=== PATIENT | male | born 1935 | race Caucasian/White ===

== ENCOUNTER 2019-05-09 05:03 | Inpatient (IN) | payer MEDICARE, SELFPAY ==
[2019-05-09] VITALS (14 sets, daily range): BP systolic 122–160; BP diastolic 70–86; PULSE 74–103; RESP 16–18; TEMP 36.3–37.3; O2SAT 82–100; BMI 26.0; BMI 25.0; BMI 25.1
--- NOTE | 2019-05-09 05:10 | RAD_ITS ---
STUDY: X-RAY CHEST REASON FOR EXAM: Male, 84 years old. Fall. TECHNIQUE: AP portable chest. COMPARISON: None. FINDINGS: The lungs are clear and expanded. There is no demonstrated pleural abnormality. Normal size heart. Normal mediastinum and kei. Normal visualized pulmonary arteries. Atherosclerotic calcification of the aortic arch. Degenerative changes left shoulder as well as the thoracic spine. There is no demonstrated abnormality of the visualized soft tissue structures of the upper abdomen. RAD/Chest 1 View (Portable) IMPRESSION: No acute cardiopulmonary disease. Electronically Signed: Martin Vallecillo MD at 6:26 EDT , Service support ,
--- NOTE | 2019-05-09 05:10 | EKG12_ITS ---
Test Reason : FALL Blood Pressure : / mmHG Vent. Rate : 077 BPM Atrial Rate : 077 BPM P-R Int : 170 ms QRS Dur : 098 ms QT Int : 414 ms P-R-T Axes : 077 -40 081 degrees QTc Int : 468 ms Normal sinus rhythm Left axis deviation Abnormal ECG Confirmed by TANESHA LIZ ([id number]), acquisition editor CONSTANTIN OLIVAS ([id number] on 05/10/2019 9:49:02 AM Referred By: HEBERT Confirmed By:TANESHA LIZ
--- NOTE | 2019-05-09 05:12 | RAD_ITS ---
STUDY: X-RAY - PELVIS AND LEFT HIP REASON FOR EXAM: Male, 84 years old. Fall. TECHNIQUE: 3 views of the pelvis and hip. COMPARISON: None. FINDINGS: There is a non-specific bowel gas pattern. Normal visualized soft tissue structures. Normal bilateral iliac wings, sacroiliac joints and visualized sacrum. Normal bilateral superior and inferior pubic rami. Normal pubic symphysis. Normal bilateral ischial tuberosities. Degenerative changes of the lower lumbar spine. Right hip is grossly normal. There is an oblique longitudinal displaced intertrochanteric fracture of the left hip with apex lateral angulation. No dislocation. Superior hip joint space narrowing. RAD/HIP, UNI W/ Pelvis 2-3 Views IMPRESSION: Intertrochanteric fracture left hip. Electronically Signed: Martin Vallecillo MD at 6:29 EDT , Service support ,
--- NOTE | 2019-05-09 05:13 | CT_ITS ---
STUDY: CT BRAIN WITHOUT CONTRAST REASON FOR EXAM: Male, 84 years old. Fall. Left hip fracture. RADIATION DOSAGE (If Supplied By Facility): CTDIvol = ( 44.99 ) mGy, DLP = ( 812.98 ) mGycm TECHNIQUE: Transaxial CT imaging of the brain was performed without administration of intravenous contrast material. Individualized dose optimization techniques were used for this CT. COMPARISON: No relevant priors. FINDINGS: Normal soft tissue structures. Normal calvarium. Normal size ventricles and extra-axial spaces for the patient's age. Normal white matter tracts of the cerebral hemispheres. Old lacunar infarction head of the caudate nucleus on the right. Normal thalami. Normal brainstem. Normal cerebellum. There is no intracranial hemorrhage. There are no findings of an acute ischemic infarction. Normal visualized paranasal sinuses. Decreased aeration of the right mastoid air cells which is probably chronic. CT/Brain/Head without Contrast IMPRESSION: No acute intracranial abnormality. Old right basal ganglia lacunar infarction otherwise normal CT head for the patient's age. Electronically Signed: Martin Vallecillo MD at 6:32 EDT , Service support ,
[2019-05-09] MEDS: Morphine 4 MG/ML Syringe IV (05:23)
[2019-05-09] MEDS: Ondansetron 4 MG/2 ML Vial IV (05:23)
[2019-05-09] MEDS: 0.9% Normal Saline 1,000 ML 150 ML IV (05:30)
[2019-05-09 05:33] LABS: Absolute Neutrophil Count 2.8 X10^3/uL (2.0-7.7); Basophil# 0.01 X10^3/uL; Basophil% 0.2 % (0-1); Eosinophil# 0.11 X10^3/uL; Eosinophils% 1.9 % (0-5); Hematocrit 32.2 % (40-54); Hemoglobin 11.1 g/dL (13.0-16.5); Lymphocyte % 38.9 % (19-41); Mean Corp Hgb Conc 34.5 g/dL (32-36); Mean Corpuscular Hgb 31.8 pg (27.0-32.0); Mean Corpuscular Volume 92.3 fL (80-94); Mean Platelet Vol. 8.2 fl (6.2-12.0); Monocyte# 0.48 X10^3/uL; Monocyte% 8.5 % (0-10); NRBC Flagged by Analyzer 0 % (0-5); Neutrophil # 2.83 X10^3/uL (2.7-7.7); Platelet Count 163 K/mm3 (150-450); RBC Distribution Width SD 43.5 fl (35.1-43.9); Red Blood Count 3.49 M/mm3 (4.6-6.2); White Blood Count 5.7 K/mm3 (4.4-11.0)
[2019-05-09 05:48] LABS: Anion Gap 6 (5-15); BUN 22 mg/dL (7-18); BUN/Creat Ratio 10.2 RATIO (10-20); Calcium,Total 8.3 mg/dL (8.5-10.1); Chloride 106 mmol/L (98-107); Creatinine, Serum 2.16 mg/dL (0.70-1.30); EST Glomerular Filtration Rate 31 mL/min (>60); Est Glom Filt Rate - Afr Amer 38 mL/min (>60); Estimated Creatinine Clearance 27.11 ml/min; Glucose 192 mg/dL (74-106); Potassium 4.4 mmol/L (3.5-5.1); Sodium Level 137 mmol/L (136-145)
--- NOTE | 2019-05-09 06:21 | NURSING ---
[facility] HAS BEEN UNABLE TO REACH FAMILY FOR NOTIFICATION OF ADMISSION.
--- NOTE | 2019-05-09 06:23 | ED.DCSUM_ITS ---
- ER Visit Summary Date of Service: 05/09/19 Chief Complaint: [Fall and left hip injury] History of Present Illness: The patient is a 84 M [presents to the emergency department with a fall that occurred this morning. Patient was found on the floor at his halfway bedroom. Patient could not get up or bear weight. EMS was called. Patient has history of diabetes, hypertension, hypothyroidism, and A. fib. Patient is not anticoagulated. Patient is rather a poor historian and does not know what happened. Patient does have history of some dementia.] Patient denies chest pain. Patient denies neck pain. Patient denies shortness of breath. Patient denies abdominal pain. Physical Examination: [HEENT-PERRLA, EOMI. Cranial nerves II through XII grossly intact. TMs clear. Mucous membranes moist. No adenopathy. No C-spine tenderness on palpation. Cardiovascular-regular rate and rhythm without murmur or ectopy Lungs-clear to auscultation, chest wall stable without crepitus or subcu emphysema Abdomen-normoactive bowel sounds, soft, nontender, no rebound or rigidity, no peritoneal signs. Extremities-intact ?4, normal range of motion, normal pulses. Left hip-patient does have shortening of the left lower extremity with some mild external rotation. Neurovascularly intact distally. He has pain with logrolling.] Test Results: [EKG obtained arrival shows sinus rhythm with a ventricular rate 77 bpm with no acute segment changes. CBC with a short of 5.7, hemoglobin 11, hematocrit 32. Chemistries unremarkable. BUN was 22 and creatinine 2.16. Troponin was less than 0.15. Chest x-ray showed nothing acute. X-rays of the left hip read by myself as left hip fracture suspect intertrochanteric. CT scan of the brain without contrast showed chronic involutional changes in my interpretation I do not see any evidence of intracranial hemorrhage or skull fracture.] Emergency Department Course and Treatment: [Patient was medicated with morphine and Zofran. Patient was given normal saline.] Treatment Plan: [This was discussed with orthopedics as well as internal medicine physician who will evaluate patient for admission] Disposition: [Admit] Impression: [Fall Left hip fracture Renal insufficiency] This note was generated with [employer] dictation software. It may contain incorrect words, spelling, and punctuation that were not noted in review of the chart prior to signing ED Disposition - Plan for ED Patient: Referrals: Hieu Gardner MD [Primary Care Provider] -
--- NOTE | 2019-05-09 06:25 | HP.PCM_ITS ---
Problem List (1) A-fib Status: Acute (2) Hyperlipidemia Status: Acute (3) Hypertension Status: Chronic (4) Depression Status: Acute (5) DM type 2 (diabetes mellitus, type 2) Status: Acute (6) Hypothyroidism Status: Acute (7) Glaucoma Status: Acute (8) Closed left hip fracture Status: Acute History of Present Illness Date of Admission: 05/09/19 Chief Complaint: Left hip pain The patient is a 84 year old M with a PMH as below who [facility]. He has also a history of dementia and therefore does not provide clear history. It appears that he lives at the [facility] and had an unwitnessed fall today. He was complaining of leg pain so they sent him into the ER where he was had hip x-ray which demonstrated a left femur fracture. In the ER EKG was unremarkable, was nonischemic, chest x-ray was also unremarkable. He denies any chest pain or shortness of breath and does not have any difficulty ambulating or walking upstairs. Globin is stable at 11.1, and his troponin is negative. His creatinine is 2.16 however we do not have previous lab work in the computer system to be able to know his baseline. We have att empted to call the family and unfortunately have not answered yet. Past Medical History Past Medical History (Chronic Problems): Chronic Problems Hypertension (Chronic) Allergies No Known Allergies Allergy (Verified 05/09/19 05:09) Home Medications: Ambulatory Orders Medication Instructions Recorded Amiodarone HCl 200 mg PO DAILY 05/09/19 Atorvastatin Calcium 10 mg PO QHS 05/09/19 Cholecalciferol (VIT D3) [Vitamin 1,000 unit PO DAILY 05/09/19 D3] Insulin Glargine,Hum.rec.anlog 5 unit SQ QHS 05/09/19 [Lantus Solostar] Latanoprost 0.005% [Xalatan 1 drp OPHTHALMIC (EYE) QHS 05/09/19 Opthalmic] Levothyroxine Sodium [Synthroid] 88 mcg PO DAILY 05/09/19 Lisinopril 5 mg PO DAILY 05/09/19 Venlafaxine HCl [Effexor] 75 mg PO BID 05/09/19 Smoking Status: Former smoker Tobacco Use: Cigarettes Alcohol: None Drugs: None - *Family History Maternal History Items: No pertinent history, - - Unable to answer any historical questions due to his dementia Paternal History Items: No pertinent history, - - unable to answer any historical questions due to his dementia Review of Systems Unable to obtain accurate/complete ROS d/t: Dementia VTE Information - Inpt Only VTE Present on Admission: No Patient Problems: Active and Suspected Problems A-fib (Acute) Hyperlipidemia (Acute) Depression (Acute) DM type 2 (diabetes mellitus, type 2) (Acute) Hypothyroidism (Acute) Glaucoma (Acute) Closed left hip fracture (Acute) - Physical Exam General: Alert, Cooperative, No apparent distress, - - Oriented to person and place HEENT: Atraumatic, PERRLA, EOMI, Normocephalic Oral: Moist Mucosa Neck: Supple, No JVD Lungs: Clear to auscultation, Normal air movement, No rhonchi, No wheeze, No rales Cardiovascular: Regular rate, Regular Rhythm, Normal S1, Normal S2, No murmurs Abdomen: Soft, Non Tender, Non-Distended, No Hepato-splenomegaly Extremities: Capillary Refill Less than 3 Seconds, Edema - Trace pitting edema Skin: No rashes, No breakdown Musculoskeletal: Tenderness - To left hip Neurological: Neuro grossly intact, Sensory exam intact to light touch and pain Psych/Mental Status: Normal Affect, Appropriate Vital Signs Temp Pulse Resp BP Pulse Ox 98.6 F 74 18 160/82 H 96 05/09/19 05:05 05/09/19 05:05 05/09/19 05:05 05/09/19 05:05 05/09/19 05:05 Oxygen Delivery Method Room Air Weight: 186 lb 15.232 oz Body Mass Index (BMI) 26.0 Laboratory Tests Past 24 Hrs 05/09/19 05/09/19 05:25 05:25 WBC 5.7 RBC 3.49 L Hgb 11.1 L Hct 32.2 L MCV 92.3 MCH 31.8 MCHC 34.5 RDW Std Deviation 43.5 RDW Coeff of Yin 13.0 Plt Count 163 MPV 8.2 Immature Gran % (Auto) 0.500 Neut % (Auto) 50.0 Lymph % (Auto) 38.9 [place] % (Auto) 8.5 Eos % (Auto) 1.9 Baso % (Auto) 0.2 Absolute Neuts (auto) 2.8 Absolute Lymphs (auto) 2.20 Absolute Nucleated RBC 0.00 Nucleated RBC % 0 Sodium 137 Potassium 4.4 Chloride 106 Carbon Dioxide 25.0 Anion Gap 6 BUN 22 H Creatinine 2.16 H Estim Creat Clear Calc 27.11 Est GFR (MDRD) Af Amer 38 L Est GFR (MDRD) Non-Af 31 L BUN/Creatinine Ratio 10.2 Glucose 192 H Calcium 8.3 L Troponin I < 0.015 Assessment/Plan All Active Problems A-fib (Acute) Hyperlipidemia (Acute) Depression (Acute) DM type 2 (diabetes mellitus, type 2) (Acute) Hypothyroidism (Acute) Glaucoma (Acute) Closed left hip fracture (Acute) 1. Left hip fracture -Currently he is low to moderate risk for surgery -EKG is nonischemic, chest x-ray is normal, troponin is normal -Consult to orthopedic surgery for evaluation and operative intervention -He is currently n.p.o. -PT/OT 2. A. fib/HTN/HLD -Not on any anticoagulation probably due to being a fall risk -Continue with amiodarone, hold lisinopril until after surgery and evaluation of kidney function -Continue with Lipitor 3. IDDM -He is on Lantus 5 units nightly -We will continue on the inpatient side though he will be n.p.o. for surgery today -Blood sugar on admission was 192 4. Glaucoma -Stable -Continue with eyedrops 5. Depression anxiety -Stable -Continue with Effexor 6. Hypothyroidism -Stable -Continue with home Synthroid DVT: SCDs Code Visit Inpatient E&M: 52417 Init Hosp L3
--- NOTE | 2019-05-09 08:03 | RAD_ITS ---
STUDY: X-RAY - LEFT FEMUR REASON FOR STUDY: Limited range of motion, injury. TECHNIQUE: 2 view(s) of the femur. COMPARISON: Radiographs of the left hip 05/09/2019. FINDINGS: There is an angulated intertrochanteric fracture as on the earlier study. There is vascular calcification. There is left hip arthrosis. RAD/Femur Min 2 Views IMPRESSION: No significant change of intertrochanteric fracture. Electronically Signed: Tadeo Torres MD at 10:21 EDT Tel , Service support ,
--- NOTE | 2019-05-09 08:43 | PCM.PN.BLA ---
Progress Note Patient was seen and examined. He was admitted early this morning. He complains of pain in the left hip. Daughter, who is the POA, Leisa Licea present at bedside. Patient has h/o remote FL, h/o Chronic A. fib s/p ablation, lumbar stenosis, urine incontinence, dementia, CKD stage 3. They will bring paperwork. He gets all his previous care from [facility] system. At baseline, he walks with a walker or is in a wheelchair. No acute cardiac events or symptoms over the last 6 months-1 year. EKG shows normal sinus rhythmn, no acute ST-T changes. Troponins x 1 is negative Will get another troponin Get records from [facility] Continue with IVF, NPO status and ISS Patient is moderate risk for planned hip surgery per Revised Cardiac Index scale, 6.6% risk for all cause adverse events Jame pre-operative risk for adverse cardiac events is 0.42% Geriatric sensitive preoperative risk for adverse cardiovascular events is 0.5% Code status is DNR-CCA
[2019-05-09] MEDS: 0.9% NaCl Peripheral Flush Adult/Peds IV ×2 (08:48→11:35)
[2019-05-09] MEDS: Morphine 2 MG/ML Syringe IV ×2 (08:48→11:35)
[2019-05-09] MEDS: Insulin Lispro 100 UNIT/ML INSULN.PEN SC ×4 (08:54→23:55)
[2019-05-09 09:21] LABS: Bedside Glucose 226 mg/dL (70-110)
--- NOTE | 2019-05-09 11:19 | CASEMGMT ---
Social Work Note Pt is listed as being from [facility]. SW placed a call to Ruma at [facility] and left message for her to give this worker a call back. SW waiting for call back. Lucina Nino EDUCATIONAL SPECIALIST, LAND DEGRADATION ANALYST
[2019-05-09] MEDS: Levothyroxine 88 MCG Tablet PO (11:35)
[2019-05-09] MEDS: Amiodarone 200 MG Tablet PO (11:35)
[2019-05-09 11:51] LABS: Bedside Glucose 211 mg/dL (70-110)
--- NOTE | 2019-05-09 12:10 | NURSING ---
REPORT CALLED TO ROSSY VIZCAINO IN [facility]. PATIENT TRANSPORTED BROOK BED TO A., DAUGHTER ACCOMPANIED.
--- NOTE | 2019-05-09 13:08 | PCM.CONS.GEN ---
Reason for Consult Date of Consultation: 05/09/19 Reason for Consultation: left hip pain History of Present Illness: The patient is a 84 year old M presents from the half-way after mechanical fall. He has also a history of dementia and therefore does not provide clear history. history obtained from daughter. It [facility] and had an unwitnessed fall today. He was complaining of leg pain so they sent him into the ER where he was had hip x-ray which demonstrated a left subtrochanteric fracture. He denies any chest pain or shortness of breath and does not have any difficulty ambulating or walking upstairs. complains of left hip pain only, no headache, nausea/vomiting or other issues. Past Medical History Past Medical History (Chronic Problems): Chronic Problems Hypertension (Chronic) Allergies No Known Allergies Allergy (Verified 05/09/19 05:09) Home Medications: Ambulatory Orders Medication Instructions Recorded Amiodarone HCl 200 mg PO DAILY 05/09/19 Aspirin [Aspirin EC] 81 mg 05/09/19 Atorvastatin Calcium 10 mg PO QHS 05/09/19 Cholecalciferol (VIT D3) [Vitamin 1,000 unit PO DAILY 05/09/19 D3] Insulin Glargine,Hum.rec.anlog 5 unit SQ QHS 05/09/19 [Lantus Solostar] Latanoprost 0.005% [Xalatan 1 drp OPHTHALMIC (EYE) QHS 05/09/19 Opthalmic] Levothyroxine Sodium [Synthroid] 88 mcg PO DAILY 05/09/19 Lisinopril 5 mg PO DAILY 05/09/19 Venlafaxine HCl [Effexor] 75 mg PO BID 05/09/19 Smoking Status: Former smoker Tobacco Use: Cigarettes Alcohol: None Drugs: None - *Family History Maternal History Items: No pertinent history, - - Unable to answer any historical questions due to his dementia Paternal History Items: No pertinent history, - - unable to answer any historical questions due to his dementia Patient Problems: Active and Suspected Problems A-fib (Acute) Hyperlipidemia (Acute) Depression (Acute) DM type 2 (diabetes mellitus, type 2) (Acute) Hypothyroidism (Acute) Glaucoma (Acute) Closed left hip fracture (Acute) - Physical Exam Vital Signs Temp Pulse Resp BP Pulse Ox 97.6 F L 91 16 122/70 H 94 05/09/19 11:57 05/09/19 11:57 05/09/19 11:57 05/09/19 11:57 05/09/19 11:57 Oxygen Delivery Method Room Air Weight: 179 lb 14.355 oz Body Mass Index (BMI) 25.0 Intake and Output for Last 24 Hours 05/07/19 05/08/19 05/09/19 23:59 23:59 23:59 Intake Total 320 / 320 Output Total 0 / 0 Balance 320 / 320 Laboratory Tests Past 24 Hrs 05/09/19 05/09/19 05:25 05:25 WBC 5.7 RBC 3.49 L Hgb 11.1 L Hct 32.2 L MCV 92.3 MCH 31.8 MCHC 34.5 RDW Std Deviation 43.5 RDW Coeff of Yin 13.0 Plt Count 163 MPV 8.2 Immature Gran % (Auto) 0.500 Neut % (Auto) 50.0 Lymph % (Auto) 38.9 [place] % (Auto) 8.5 Eos % (Auto) 1.9 Baso % (Auto) 0.2 Absolute Neuts (auto) 2.8 Absolute Lymphs (auto) 2.20 Absolute Nucleated RBC 0.00 Nucleated RBC % 0 Sodium 137 Potassium 4.4 Chloride 106 Carbon Dioxide 25.0 Anion Gap 6 BUN 22 H Creatinine 2.16 H Estim Creat Clear Calc 27.11 Est GFR (MDRD) Af Amer 38 L Est GFR (MDRD) Non-Af 31 L BUN/Creatinine Ratio 10.2 Glucose 192 H Calcium 8.3 L Troponin I < 0.015 POC Glucose 05/09/19 05/09/19 11:40 08:50 POC Glucose 211 H 226 H Assessment/Plan All Active Problems A-fib (Acute) Hyperlipidemia (Acute) Depression (Acute) DM type 2 (diabetes mellitus, type 2) (Acute) Hypothyroidism (Acute) Glaucoma (Acute) Closed left hip fracture (Acute) left subtrochanteric fracture OR ancef 2 g Discussed in detail with daughter morbidity mortality with a left hip fracture is especially is secondary to the fact that he is a diabetic and has dementia and risk increased risk for sundowning infection nonhealing etc. Risk benefits alternatives surgery discussed with family. Risks including but not limited to blood loss, blood clot, infection, neurovascular, failure procedure, loss of life and loss of limb. Daughter is aware and would like proceed with left hip intramedullary nailing possible open reduction and cerclage wiring. Medicine clear next Weight-bear as tolerated post surgery This note was generated with [employer] software. It may contain incorrect words, spelling, and punctuation that were not noted in checking the note before signing.
[2019-05-09] MEDS: Cefazolin 2 GM in 0.9% Normal Saline 100 ML IV (13:32)
--- NOTE | 2019-05-09 13:45 | RAD_ITS ---
STUDY: X-RAY - LEFT FEMUR REASON FOR STUDY: Male, 84 years old. Fluoroscopic guided intraoperative fixation of left hip fracture TECHNIQUE: 7 view(s) of the femur. COMPARISON: None. FINDINGS: 7 fluoroscopic guided films were submitted during intraoperative fixation of intertrochanteric fracture. For more complete information recommend correlation with surgical notes. RAD/Femur Min 2 Views IMPRESSION: Fluoroscopic guided intraoperative fixation of left intertrochanteric fracture Electronically Signed: Jeb Rodriguez MD at 16:54 EDT , Service support ,
--- NOTE | 2019-05-09 15:09 | CASEMGMT ---
Social Work Note YUMIKO received call from Ruma at [facility]. Ruma states pt is jail resident at [facility] and was private pay. 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 YUMIKO informed Ruma that pt is having surgery today so this worker will fax PT/OT tomorrow once PT/OT works with pt. Ruma states understanding. YUMIKO met with pt and pt's daughter Leisa. Pt has dementia and unable to provide any history. Leisa confirms that pt is from jail at [facility] and the plan is for pt to return there at discharge. YUMIKO informed Leisa that typically after a hip fracture, pt will need skilled at SNF and explained that [facility] will be trying to get a one time contract for pt. Leisa states understanding, states pt will be returning to [facility] regardless. SW to fax updates to [facility] tomorrow. Ruma at [facility] will try to get a one time contract. Plan: Return to [facility] pending one time contract Lucina Nino YARN PREPARATION SUPERVISOR, WIRER MAINTENANCE
[2019-05-09] MEDS: Mupirocin Ointment 22gm Tube 1 APPLIC (15:20)
--- NOTE | 2019-05-09 15:29 | OP.PCM_ITS ---
Report of Operation Date of Procedure: 05/09/19 Pre-Operative Diagnosis: left displaced subtrochanteric fracture Post-Operative Diagnosis: same Surgery/Procedure Performed:: left cephalomedullary hip nailing human development professor: Saul Bonilla Type of Anesthesia:: General Anesthesiologist: Cam Hodge Estimated Blood Loss (mL): 150cc Fluids Replaced: 700cc lr Description of Procedure: Preoperative note Operative note Patient seen and examined preop holding her with daughter at bedside. Left hip was marked. Patient's history and physical and consent were reviewed. Patient brought to the operating placed supine the operative table. Signed, anesthesia, antibiotics were flower planter. Patient was placed in the fracture table with the left leg placed in the disc traction. The right hip was in the right leg was then attached and scissoring position with well-padded to the post. We were unable to flex and externally rotate the right hip due to arthritis and we were not able to get the lateral fluoroscopy images of the left hip in this position so we decided to use the right hip in a scissoring position instead in order to better facilitate Intra-Op fluoroscopy. Timeout was performed. We then used of fluoroscopy and flex the hip abducted the hip and did multiple images to ensure that we had good reduction of our fracture which we did have. Timeout was performed after the left hip was prepped and draped usual sterile fashion. We then used a guidewire from the level of the greater greater trochanter and angling it down to the level of the lesser we then opened did our opening reamer we then placed our ball-tipped guidewire down the level of the suprapatellar area. We then measured [address] a 386 screw. We then reamed sequentially starting at around 8 and going up to about 13-1/2. We then placed a 12 x 380 nail. We then placed a guidewire in our record and placed a guidewire up into the center center of the femoral head we did have better reduction on the AP plan plain the and then after we measured a 100 we placed 100 to the screw up into the femoral head. Maintaining him getting better reduction of the subject at that. At that time in the coronal plane. We then did distal locking center perfect [place] technique to and locked the nail distally. We did have to release a little bit of traction in order to do the distal locking screws and with a perfect [place] technique. Have however after we did the perfect [place] technique distally we did confirm proximally that we still maintained our fracture reduction which we did have. We irrigated the incisions all with some of the sterile saline. Approximately we closed the deep one 2-0 Vicryl and the skin with any as well as of those of the first 2 incisions and then our distal screws were locking or distal screws to lock the nail we placed any and sterile dressings were applied patient tolerated proc edure well no comp occasions [facility] recovery room in stable condition. Postoperative Postop x-rays in recovery next Weight-bear as tolerated Discussed with daughter Bernardoalayna Keenan Follow-up in 2 weeks if in the hospital I will see patient here next Discussed morbidity mortality and lead in detail and at length with daughter due to the fact that patient has multiple comorbid conditions and this is a hip fracture can be quite devastating the first year. Daughter is aware. Dragon disclaimer This note was generated with [employer] dictation software. It may contain incorrect words, spelling, and punctuation that were not noted in checking the note before signing.
[2019-05-09 15:50] LABS: Bedside Glucose 174 mg/dL (70-110)
--- NOTE | 2019-05-09 15:55 | RAD_ITS ---
STUDY: X-RAY - PELVIS AND LEFT HIP REASON FOR EXAM: Male, 84 years old. Postop TECHNIQUE: 4 views of the pelvis and hip. COMPARISON: May 09, 2019 FINDINGS: Postsurgical changes status post open reduction internal fixation of left intertrochanteric fracture with fracture fragments in near-anatomic alignment and position.. There is avulsion of the lesser trochanter with persistent mild separation of fracture fragments.. RAD/Hip Min 2 Views (Portable) IMPRESSION: Status post ORIF left intertrochanteric fracture Electronically Signed: Jeb Rodriguez MD at 16:19 EDT , Service support ,
[2019-05-09] MEDS: 0.9% Normal Saline 1,000 ML 100 ML IV (17:19)
[2019-05-09] MEDS: Rivaroxaban 10 MG Tablet PO (19:13)
[2019-05-09 19:41] LABS: Bedside Glucose 194 mg/dL (70-110)
[2019-05-09] MEDS: oxyCODONE 5 MG Tablet PO (22:03)
[2019-05-09] MEDS: Atorvastatin Calcium 10 MG Tablet PO (22:03)
[2019-05-09] MEDS: Acetaminophen 500 MG Tablet 1000 MG PO (22:03)
[2019-05-09] MEDS: Latanoprost 0.005% 1 Bottle 1 DRP OPHTHALMIC (22:04)
[2019-05-09] MEDS: Cefazolin 1 GM/50 ML BAG IV (22:04)
[2019-05-10 00:01] LABS: Bedside Glucose 216 mg/dL (70-110)
[2019-05-10 03:25] VITALS: BP 106/62; PULSE 94; RESP 16; TEMP 36.9; O2SAT 99
[2019-05-10] MEDS: 0.9% Normal Saline 1,000 ML 100 ML IV (03:32)
[2019-05-10] MEDS: oxyCODONE 5 MG Tablet PO ×3 (04:52→21:37)
[2019-05-10] MEDS: Levothyroxine 88 MCG Tablet PO (05:26)
[2019-05-10] MEDS: Cefazolin 1 GM/50 ML BAG IV (05:26)
[2019-05-10] MEDS: Acetaminophen 500 MG Tablet 1000 MG PO ×3 (05:26→21:34)
[2019-05-10] MEDS: Insulin Lispro 100 UNIT/ML INSULN.PEN SC ×4 (06:37→21:36)
[2019-05-10 06:39] LABS: Anion Gap 4 (5-15); BUN 25 mg/dL (7-18); BUN/Creat Ratio 10.5 RATIO (10-20); Calcium,Total 7.7 mg/dL (8.5-10.1); Chloride 109 mmol/L (98-107); Creatinine, Serum 2.39 mg/dL (0.70-1.30); EST Glomerular Filtration Rate 28 mL/min (>60); Est Glom Filt Rate - Afr Amer 34 mL/min (>60); Glucose 183 mg/dL (74-106); Potassium 4.9 mmol/L (3.5-5.1); Sodium Level 136 mmol/L (136-145)
[2019-05-10 06:46] LABS: Absolute Lymphocyte Count 1.28 X10^3/uL (0.83-4.51); Absolute Neutrophil Count 3.9 X10^3/uL (2.0-7.7); Basophil# 0.01 X10^3/uL; Basophil% 0.2 % (0-1); Hematocrit 26.5 % (40-54); Hemoglobin 8.9 g/dL (13.0-16.5); Lymphocyte # 1.28 X10^3/ul (4.0); Lymphocyte % 22.1 % (19-41); Mean Corp Hgb Conc 33.6 g/dL (32-36); Mean Corpuscular Hgb 32.2 pg (27.0-32.0); Mean Platelet Vol. 8.6 fl (6.2-12.0); Monocyte% 10.4 % (0-10); NRBC Flagged by Analyzer 0 % (0-5); Neutrophil # 3.87 X10^3/uL (2.7-7.7); Platelet Count 165 K/mm3 (150-450); RBC Distribution Width CV 13.5 % (11.6-14.6); Red Blood Count 2.76 M/mm3 (4.6-6.2); White Blood Count 5.8 K/mm3 (4.4-11.0)
[2019-05-10 06:51] LABS: Bedside Glucose 162 mg/dL (70-110)
--- NOTE | 2019-05-10 08:02 | PN_ITS ---
Patient Problems: Active and Suspected Problems A-fib (Acute) Hyperlipidemia (Acute) Depression (Acute) DM type 2 (diabetes mellitus, type 2) (Acute) Hypothyroidism (Acute) Glaucoma (Acute) Closed left hip fracture (Acute) Subjective: Patient was seen and examined. He is conversative. He denied any pain. No acute events overnight. Vitals/I&O's: Vital Signs Temp Pulse Resp BP Pulse Ox 98.5 F 94 16 106/62 99 05/10/19 03:25 05/10/19 03:25 05/10/19 03:25 05/10/19 03:25 05/10/19 03:25 Oxygen Flow Rate (L/min) 2 Oxygen Delivery Method Nasal Cannula Weight: 81.6 kg Body Mass Index (BMI) 25.0 Finger Stick Blood Glucose 173 Intake and Output for Last 24 Hours 05/08/19 05/09/19 05/10/19 23:59 23:59 23:59 Intake Total 1970 / 1970 700 / 700 Output Total 180 / 180 280 / 280 Balance 1790 / 1790 420 / 420 General: Alert, Oriented x3, Cooperative, No apparent distress HEENT: Atraumatic, PERRLA, EOMI, Normocephalic Oral: Moist Mucosa Neck: Supple Lungs: Clear to auscultation, Normal air movement Cardiovascular: Regular rate, Regular Rhythm, Normal S1, Normal S2, No murmurs Abdomen: Bowel Sounds Present, Soft, Non Tender, Non-Distended, No Hepato- splenomegaly Extremities: No edema Skin: No rashes Musculoskeletal: No Tenderness to Palpation of Joints or Extremities Lymphatic: No Cervical, Supraclavicular, or Inguinal Adenopathy Neurological: Cranial nerves II-XII grossly intact, Neuro grossly intact Psych/Mental Status: Normal Affect, Appropriate Laboratory Results 05/09/19 08:50: POC Glucose 226 H 05/09/19 11:40: POC Glucose 211 H 05/09/19 15:45: POC Glucose 174 H 05/09/19 19:14: POC Glucose 194 H 05/09/19 23:53: POC Glucose 216 H 05/10/19 05:52: WBC 5.8, RBC 2.76 L, Hgb 8.9 L, Hct 26.5 L, MCV 96.0 H, MCH 32.2 H, MCHC 33.6, RDW Std Deviation 47.0 H, RDW Coeff of Yin 13.5, Plt Count 165, MPV 8.6, Immature Gran % (Auto) 0.300, Neut % (Auto) 67.0, Lymph % (Auto) 22.1, [place] % (Auto) 10.4 H, Eos % (Auto) 0.0, Baso % (Auto) 0.2, Absolute Neuts (auto) 3.9, Absolute Lymphs (auto) 1.28, Absolute Nucleated RBC 0.00, Nucleated RBC % 0 05/10/19 05:52: Sodium 136, Potassium 4.9, Chloride 109 H, Carbon Dioxide 23.0, Anion Gap 4 L, BUN 25 H, Creatinine 2.39 H, Estim Creat Clear Calc 24.50, Est GFR (MDRD) Af Amer 34 L, Est GFR (MDRD) Non-Af 28 L, BUN/Creatinine Ratio 10.5, Glucose 183 H, Calcium 7.7 L 05/10/19 06:34: POC Glucose 162 H Current Medications Acetaminophen (Tylenol) 1,000 mg PO TID [facility] Last Admin: 05/10/19 05:26 Dose: 1,000 mg Documented by: Amiodarone HCl (Cordarone) 200 mg PO DAILY [facility] Last Admin: 05/09/19 11:35 Dose: 200 mg Documented by: Atorvastatin Calcium (Lipitor) 10 mg PO QHS [facility] Last Admin: 05/09/19 22:03 Dose: 10 mg Documented by: Cholecalciferol (Vitamin D) 1,000 unit PO DAILYCM [facility] Last Admin: 05/09/19 11:35 Dose: 1,000 unit Documented by: Dextrose (D50w Syringe) 0 gm IV X1 PRN; Protocol PRN Reason: Hypoglycemia Glucagon () 1 mg IM .X1 PRN PRN Reason: Hypoglycemia Sodium Chloride () 1,000 mls @ 100 mls/hr IV .Q10H [facility] Last Admin: 05/10/19 03:32 Dose: 100 mls/hr Documented by: Insulin Human Lispro (Humalog Kwikpen (Bkc)) 0 unit SC Q6 [facility]; Protocol Last Admin: 05/10/19 06:37 Dose: 1 units Documented by: Latanoprost (Xalatan Opthalmic) 1 drop OPHTHALMIC QHS [facility] Last Admin: 05/09/19 22:04 Dose: 1 drop Documented by: Levothyroxine Sodium (Synthroid) 88 mcg PO DAILY@0600 [facility] Last Admin: 05/10/19 05:26 Dose: 88 mcg Documented by: Morphine Sulfate () 2 mg IV Q3H PRN PRN PRN Reason: SEVERE PAIN (6-10/10) Last Admin: 05/09/19 11:35 Dose: 2 mg Documented by: Oxycodone HCl (Oxyir) 5 mg PO Q6H PRN PRN PRN Reason: SEVERE PAIN (6-10/10) Last Admin: 05/10/19 04:52 Dose: 5 mg Documented by: Rivaroxaban (Xarelto) 10 mg PO DAILY@1700 [facility] Last Admin: 05/09/19 19:13 Dose: 10 mg Documented by: Sodium Chloride () 10 - 40 ml IV UD PRN PRN Reason: SALINE FLUSH Last Admin: 05/09/19 11:35 Dose: 10 ml Documented by: Medical Necessity - Tobacco Use Smoking Status: Former smoker Tobacco Use: Cigarettes Assessment/Plan All Active Problems A-fib (Acute) Hyperlipidemia (Acute) Depression (Acute) DM type 2 (diabetes mellitus, type 2) (Acute) Hypothyroidism (Acute) Glaucoma (Acute) Closed left hip fracture (Acute) 1. POD #1, s/p left cephalo-medullary nailing, pain is controlled, PT and OT consulted, Orthopedic surgery on board, will follow up on surgical recommendations 2. Paroxysmal A. fib, in NSR, stable vitals, return anticoagulations because of recurrent falls, continue on amiodarone 3.Type 2 DM, insulin dependent, blood sugars are controlled, continue on insulin, insulin sliding scale with blood sugar checks 4. Hypothyroidism, on levothyroxine 5. DVT prophylaxis with Xarelto 6. Disposition: DC to SNF tomorrow. Code Visit Inpatient E&M: 46055 Subs Hosp L2
[2019-05-10 08:20] LABS: Hematocrit 25.8 % (40-54); Hemoglobin 8.7 g/dL (13.0-16.5)
--- NOTE | 2019-05-10 08:35 | PCM.PN.ORT ---
Patient Problems: Active and Suspected Problems A-fib (Acute) Hyperlipidemia (Acute) Depression (Acute) DM type 2 (diabetes mellitus, type 2) (Acute) Hypothyroidism (Acute) Glaucoma (Acute) Closed left hip fracture (Acute) Subjective: Seen and examined. Doing okay. Pain is much better than yesterday and tolerable now. Denies chest pain palpitations shortness of breath fevers or chills nausea or vomiting light headedness or dizziness - Physical Exam General: Cooperative, No apparent distress Extremities: - - Dressing with some bloody drainage not soaking through. Compartments swollen but supple and compressible. Neurovascular intact left lower extremity EHL tibialis anterior gastrocsoleus intact sensation light touch pulses present bilaterally Vital Signs Temp Pulse Resp BP Pulse Ox 98.5 F 94 16 106/62 99 05/10/19 03:25 05/10/19 03:25 05/10/19 03:25 05/10/19 03:25 05/10/19 03:25 Oxygen Flow Rate (L/min) 2 Oxygen Delivery Method Nasal Cannula Weight: 179 lb 14.355 oz Body Mass Index (BMI) 25.0 Finger Stick Blood Glucose 173 Intake and Output for Last 24 Hours 05/08/19 05/09/19 05/10/19 23:59 23:59 23:59 Intake Total 1970 / 1970 700 / 700 Output Total 180 / 180 280 / 280 Balance 1790 / 1790 420 / 420 Laboratory Tests Past 24 Hrs 05/10/19 05/10/19 05/10/19 05:52 05:52 08:10 WBC 5.8 RBC 2.76 L Hgb 8.9 L 8.7 L Hct 26.5 L 25.8 L MCV 96.0 H MCH 32.2 H MCHC 33.6 RDW Std Deviation 47.0 H RDW Coeff of Yin 13.5 Plt Count 165 MPV 8.6 Immature Gran % (Auto) 0.300 Neut % (Auto) 67.0 Lymph % (Auto) 22.1 [place] % (Auto) 10.4 H Eos % (Auto) 0.0 Baso % (Auto) 0.2 Absolute Neuts (auto) 3.9 Absolute Lymphs (auto) 1.28 Absolute Nucleated RBC 0.00 Nucleated RBC % 0 Sodium 136 Potassium 4.9 Chloride 109 H Carbon Dioxide 23.0 Anion Gap 4 L BUN 25 H Creatinine 2.39 H Estim Creat Clear Calc 24.50 Est GFR (MDRD) Af Amer 34 L Est GFR (MDRD) Non-Af 28 L BUN/Creatinine Ratio 10.5 Glucose 183 H Calcium 7.7 L POC Glucose 05/10/19 05/09/19 05/09/19 06:34 23:53 19:14 POC Glucose 162 H 216 H 194 H 05/09/19 05/09/19 05/09/19 15:45 11:40 08:50 POC Glucose 174 H 211 H 226 H Medical Necessity - Tobacco Use Smoking Status: Former smoker Tobacco Use: Cigarettes Assessment/Plan All Active Problems A-fib (Acute) Hyperlipidemia (Acute) Depression (Acute) DM type 2 (diabetes mellitus, type 2) (Acute) Hypothyroidism (Acute) Glaucoma (Acute) Closed left hip fracture (Acute) Postop day #1 left hip cephalo-medullary fixation for intertrochanteric femur fracture with subtrochanteric extension requiring long nail Continue DVT prophylaxis Xarelto SCDs RAMY hose H&H reviewed only slightly tachycardic 103 for 1 reading nonsymptomatic monitor H&H in a.m. and monitor for symptoms PT OT DC planning likely tomorrow Dressing to be changed tomorrow then cleaned and changed daily Lauren to be removed 2 weeks postop follow-up in the office [address] Merida
[2019-05-10 08:51] VITALS: BP 105/60; PULSE 93; RESP 16; TEMP 37.1; O2SAT 96
[2019-05-10] MEDS: Amiodarone 200 MG Tablet PO (09:08)
[2019-05-10 11:20] VITALS: O2SAT 95
--- NOTE | 2019-05-10 11:50 | CASEMGMT ---
Addendum entered by Lucina Nino 05/10/19 14:00: YUMIKO spoke with Ruma at [facility]. Ruma confirms she received fax and pt actually has [facility] insurance now. Ruma to submit for pre-cert. Plan: [facility] pending pre-cert. Original Note: Social Work Note YUMIKO faxed updated clinicals to Ruma at [facility]. YUMIKO wrote on fax cover sheet to submit for one time contract with [facility] today. Plan: [facility] pending one time contract Lucina Nino TOPOGRAPHICAL DRAFTER, AUTO BODY PAINTER
[2019-05-10 11:56] LABS: Bedside Glucose 254 mg/dL (70-110)
[2019-05-10 14:26] LABS: Hematocrit 40.6 % (40-54); Hemoglobin 14.4 g/dL (13.0-16.5)
[2019-05-10 14:37] VITALS: BP 125/65; PULSE 102; RESP 16; TEMP 37.2; O2SAT 94
[2019-05-10] MEDS: 0.9% NaCl Peripheral Flush Adult/Peds IV (14:46)
[2019-05-10] MEDS: Morphine 2 MG/ML Syringe IV (14:46)
[2019-05-10] MEDS: 0.9% Normal Saline 1,000 ML 75 ML IV (14:56)
[2019-05-10 17:16] LABS: Bedside Glucose 252 mg/dL (70-110)
[2019-05-10] MEDS: Rivaroxaban 10 MG Tablet PO (17:20)
[2019-05-10 19:59] VITALS: BP 110/63; PULSE 99; RESP 20; TEMP 37.5; O2SAT 90; O2SAT 92
[2019-05-10] MEDS: Atorvastatin Calcium 10 MG Tablet PO (21:34)
[2019-05-10] MEDS: Latanoprost 0.005% 1 Bottle 1 DRP OPHTHALMIC (21:35)
[2019-05-10 21:43] VITALS: BP 121/74; PULSE 104; RESP 18; TEMP 37.1; O2SAT 97
[2019-05-10 21:45] LABS: Bedside Glucose 211 mg/dL (70-110)
[2019-05-11] VITALS (12 sets, daily range): BP systolic 104–143; BP diastolic 55–76; PULSE 90–100; RESP 18–20; TEMP 36.4–37.4; O2SAT 92–98
[2019-05-11] MEDS: oxyCODONE 5 MG Tablet PO ×3 (03:38→18:08)
[2019-05-11 05:38] LABS: Absolute Lymphocyte Count 1.31 X10^3/uL (0.83-4.51); Absolute Neutrophil Count 2.9 X10^3/uL (2.0-7.7); Basophil# 0.01 X10^3/uL; Basophil% 0.2 % (0-1); Eosinophil# 0.01 X10^3/uL; Eosinophils% 0.2 % (0-5); Hematocrit 22.9 % (40-54); Hemoglobin 7.5 g/dL (13.0-16.5); Lymphocyte # 1.31 X10^3/ul (4.0); Lymphocyte % 27.2 % (19-41); Mean Corp Hgb Conc 32.8 g/dL (32-36); Mean Corpuscular Hgb 31.9 pg (27.0-32.0); Mean Corpuscular Volume 97.4 fL (80-94); Mean Platelet Vol. 8.8 fl (6.2-12.0); Monocyte# 0.57 X10^3/uL; Monocyte% 11.8 % (0-10); NRBC Flagged by Analyzer 0 % (0-5); Neutrophil # 2.89 X10^3/uL (2.7-7.7); POSITIVE MORPHOLOGY YES; Platelet Count 132 K/mm3 (150-450); RBC Distribution Width CV 13.4 % (11.6-14.6); RBC Distribution Width SD 47.4 fl (35.1-43.9); Red Blood Count 2.35 M/mm3 (4.6-6.2); White Blood Count 4.8 K/mm3 (4.4-11.0)
[2019-05-11 05:43] LABS: Differential Indicated SCAN CRITERIA MET
[2019-05-11 05:59] LABS: Anion Gap 4 (5-15); BUN 31 mg/dL (7-18); Calcium,Total 7.6 mg/dL (8.5-10.1); Chloride 111 mmol/L (98-107); Creatinine, Serum 2.59 mg/dL (0.70-1.30); EST Glomerular Filtration Rate 25 mL/min (>60); Est Glom Filt Rate - Afr Amer 31 mL/min (>60); Estimated Creatinine Clearance 22.61 ml/min; Glucose 167 mg/dL (74-106); Potassium 4.3 mmol/L (3.5-5.1); Sodium Level 137 mmol/L (136-145)
[2019-05-11 06:23] LABS: Differential Comment SCANNED
[2019-05-11] MEDS: Acetaminophen 500 MG Tablet 1000 MG PO ×3 (06:33→21:49)
[2019-05-11] MEDS: Levothyroxine 88 MCG Tablet PO (06:34)
[2019-05-11] MEDS: Insulin Lispro 100 UNIT/ML INSULN.PEN SC ×4 (06:34→21:49)
[2019-05-11 06:41] LABS: Bedside Glucose 160 mg/dL (70-110)
--- NOTE | 2019-05-11 07:45 | PN_ITS ---
Patient Problems: Active and Suspected Problems A-fib (Acute) Hyperlipidemia (Acute) Depression (Acute) DM type 2 (diabetes mellitus, type 2) (Acute) Hypothyroidism (Acute) Glaucoma (Acute) Closed left hip fracture (Acute) Subjective: Patient was seen and examined. He complains of left hip pain. Denies dizziness or SOB. Objective: Physical exam: General: Alert, Oriented x3, Cooperative, No apparent distress HEENT: Atraumatic, PERRLA, EOMI, Normocephalic Oral: Moist Mucosa Neck: Supple Lungs: Clear to auscultation, Normal air movement Cardiovascular: Regular rate, Regular Rhythm, Normal S1, Normal S2, No murmurs Abdomen: Bowel Sounds Present, Soft, Non Tender, Non-Distended, No Hepato- splenomegaly Extremities: No edema Skin: No rashes Musculoskeletal: No Tenderness to Palpation of Joints or Extremities Lymphatic: No Cervical, Supraclavicular, or Inguinal Adenopathy Neurological: Cranial nerves II-XII grossly intact, Neuro grossly intact Psych/Mental Status: Normal Affect, Appropriate Vitals/I&O's: Vital Signs Temp Pulse Resp BP Pulse Ox 98.6 F 96 18 136/75 H 97 05/11/19 03:45 05/11/19 03:45 05/11/19 03:45 05/11/19 03:45 05/11/19 03:45 Oxygen Flow Rate (L/min) 2 Oxygen Delivery Method Nasal Cannula Weight: 81.6 kg Body Mass Index (BMI) 25.0 Finger Stick Blood Glucose 173 Intake and Output for Last 24 Hours 05/09/19 05/10/19 05/11/19 23:59 23:59 23:59 Intake Total 1969 / 1969 2710 / 2710 60 / 60 Output Total 180 / 180 355 / 355 175 / 175 Balance 1790 / 1790 2355 / 2355 -115 / -115 Laboratory Results 05/10/19 08:10: Hgb 8.7 L, Hct 25.8 L 05/10/19 11:32: POC Glucose 254 H 05/10/19 13:55: Hgb 14.4, Hct 40.6 05/10/19 17:13: POC Glucose 252 H 05/10/19 21:30: POC Glucose 211 H 05/11/19 05:10: WBC 4.8, RBC 2.35 L, Hgb 7.5 L, Hct 22.9 L, MCV 97.4 H, MCH 31.9, MCHC 32.8, RDW Std Deviation 47.4 H, RDW Coeff of Yin 13.4, Plt Count 132 L, MPV 8.8, Immature Gran % (Auto) 0.600, Neut % (Auto) 60.0, Lymph % (Auto) 27.2, Esmeralda % (Auto) 11.8 H, Eos % (Auto) 0.2, Baso % (Auto) 0.2, Absolute Neuts (auto) 2.9, Absolute Lymphs (auto) 1.31, Absolute Nucleated RBC 0.00, Nucleated RBC % 0, Differential Comment SCANNED 05/11/19 05:10: Sodium 137, Potassium 4.3, Chloride 111 H, Carbon Dioxide 22.0, Anion Gap 4 L, BUN 31 H, Creatinine 2.59 H, Estim Creat Clear Calc 22.61, Est GFR (MDRD) Af Amer 31 L, Est GFR (MDRD) Non-Af 25 L, BUN/Creatinine Ratio 12.0, Glucose 167 H, Calcium 7.6 L 05/11/19 06:32: POC Glucose 160 H Current Medications Acetaminophen (Tylenol) 1,000 mg PO TID [facility] Last Admin: 05/11/19 06:33 Dose: 1,000 mg Documented by: Amiodarone HCl (Cordarone) 200 mg PO DAILY [facility] Last Admin: 05/10/19 09:08 Dose: 200 mg Documented by: Atorvastatin Calcium (Lipitor) 10 mg PO QHS [facility] Last Admin: 05/10/19 21:34 Dose: 10 mg Documented by: [facility]ifer[facility] ([facility]) [facility] Admin: 05/10/19 09:08 Dose: 1,000 unit Documented by: Dextrose (D50w Syringe) 0 gm IV X1 PRN; Protocol PRN Reason: Hypoglycemia Ferrous Sulfate (Ferrous Sulfate) 325 mg PO 1200,1700 [facility] Glucagon () 1 mg IM .X1 PRN PRN Reason: Hypoglycemia Insulin Human Lispro (Humalog Kwikpen (Bkc)) 0 unit SC [facility]; Protocol Last Admin: 05/11/19 06:34 Dose: 1 u Documented by: Latanoprost (Xalatan Opthalmic) 1 drop OPHTHALMIC QHS [facility] Last Admin: 05/10/19 21:35 Dose: 1 drop Documented by: Levothyroxine Sodium (Synthroid) 88 mcg PO DAILY@0600 [facility] Last Admin: 05/11/19 06:34 Dose: 88 mcg Documented by: Morphine Sulfate () 2 mg IV Q3H PRN PRN PRN Reason: SEVERE PAIN (6-10/10) Last Admin: 05/10/19 14:46 Dose: 2 mg Documented by: Multivitamins (Multivitamin) 1 tablet PO DAILYCM [facility] Oxycodone HCl (Oxyir) 5 mg PO Q6H PRN PRN PRN Reason: SEVERE PAIN (6-10/10) Last Admin: 05/11/19 03:38 Dose: 5 mg Documented by: Rivaroxaban (Xarelto) 10 mg PO DAILY@1700 [facility] Last Admin: 05/10/19 17:20 Dose: 10 mg Documented by: Sodium Chloride () 10 - 40 ml IV UD PRN PRN Reason: SALINE FLUSH Last Admin: 05/10/19 14:46 Dose: 10 ml Documented by: Medical Necessity - Tobacco Use Smoking Status: Former smoker Tobacco Use: Cigarettes Assessment/Plan All Active Problems A-fib (Acute) Hyperlipidemia (Acute) Depression (Acute) DM type 2 (diabetes mellitus, type 2) (Acute) Hypothyroidism (Acute) Glaucoma (Acute) Closed left hip fracture (Acute) 1. POD #2, s/p left cephalo-medullary nailing, pain is controlled, PT and OT consulted, Orthopedic surgery on board, will follow up on surgical recommendations 2. Post-op anemia secondary to acute blood loss, Hb dropped to 6.9, will transfuse to one unit of pRBC. Will also check FOBT. 3. Paroxysmal A. fib, in NSR, stable vitals, off anticoagulation because of recurrent falls, continue on amiodarone 4.Type 2 DM, insulin dependent, blood sugars are controlled, continue on insulin, insulin sliding scale with blood sugar checks 5. Hypothyroidism, on levothyroxine 6. DVT prophylaxis with Xarelto 7. Disposition: DC to SNF tomorrow. Code Visit Inpatient E&M: 39348 Subs Hosp L2
[2019-05-11 08:29] LABS: Hematocrit 20.8 % (40-54); Hemoglobin 6.9 g/dL (13.0-16.5)
--- NOTE | 2019-05-11 08:34 | CASEMGMT ---
Addendum entered by Lucina Nino 05/11/19 14:36: Pt is getting blood today and won't be discharged. YUMIKO placed a call to Ruma at [facility] and updated her on this and that pt will likely discharge tomorrow. Addendum entered by Lucina Nino 05/11/19 14:24: YUMIKO placed a call to pt's daughter Leisa and updated her that one time contract has been approved and pt will be returning to [facility] skilled once pt is discharged. Leisa states understanding. SW completed convalescent 7000 in [facility] and placed on pt's chart. YUMIKO placed green sheet and transportation form on pt's chart. Plan: Discharge to [facility] once medically cleared Original Note: Social Work Note SW received message from Ruma at [facility] stating she received authorization for one time contract. Plan: [facility] once medically cleared Lucina Nino CRANE RIGGER, BUSINESS INTERN
[2019-05-11] MEDS: Multivitamins,Therapeutic Tablet 1 TABLET PO (08:38)
[2019-05-11] MEDS: Amiodarone 200 MG Tablet PO (08:38)
--- NOTE | 2019-05-11 09:46 | PN.ORTHO_ITS ---
Subjective: patient resting in bed. history obtained from nurse. able to get up to chair and ambulate with assistance PT yesterday. PT has not seen patient today. supplemented with vitamins d/t hb 7.7. no acute issues/ sob /n/v or other issues per nurse in last 24 hours. - Physical Exam General: Alert HEENT: Atraumatic, PERRLA, EOMI, Normocephalic Neck: Supple, No JVD, Negative Carotid Bruits Lungs: Clear to auscultation, Normal air movement Cardiovascular: Regular rate, No murmurs Abdomen: Bowel Sounds Present, Soft, Non Tender Extremities: No edema, Capillary Refill Less than 3 Seconds Skin: No rashes, No breakdown Musculoskeletal: Tenderness - dressing cdi no active drainage, no erythema or signs of infection Neurological: Cranial nerves II-XII grossly intact Psych/Mental Status: Normal Affect, Appropriate Vital Signs Temp Pulse Resp BP Pulse Ox 98.8 F 100 18 117/64 98 05/11/19 08:30 05/11/19 08:33 05/11/19 08:30 05/11/19 08:30 05/11/19 08:30 Oxygen Flow Rate (L/min) 1 Oxygen Delivery Method Nasal Cannula Weight: 179 lb 14.355 oz Body Mass Index (BMI) 25.0 Finger Stick Blood Glucose 173 Intake and Output for Last 24 Hours 05/09/19 05/10/19 05/11/19 23:59 23:59 23:59 Intake Total 1969 / 1969 2710 / 2710 60 / 60 Output Total 180 / 180 355 / 355 175 / 175 Balance 1790 / 1790 2355 / 2355 -115 / -115 Laboratory Tests Past 24 Hrs 05/10/19 05/11/19 05/11/19 13:55 05:10 05:10 WBC 4.8 RBC 2.35 L Hgb 14.4 7.5 L Hct 40.6 22.9 L MCV 97.4 H MCH 31.9 MCHC 32.8 RDW Std Deviation 47.4 H RDW Coeff of Yin 13.4 Plt Count 132 L MPV 8.8 Immature Gran % (Auto) 0.600 Neut % (Auto) 60.0 Lymph % (Auto) 27.2 [place] % (Auto) 11.8 H Eos % (Auto) 0.2 Baso % (Auto) 0.2 Absolute Neuts (auto) 2.9 Absolute Lymphs (auto) 1.31 Absolute Nucleated RBC 0.00 Nucleated RBC % 0 Differential Comment SCANNED Sodium 137 Potassium 4.3 Chloride 111 H Carbon Dioxide 22.0 Anion Gap 4 L BUN 31 H Creatinine 2.59 H Estim Creat Clear Calc 22.61 Est GFR (MDRD) Af Amer 31 L Est GFR (MDRD) Non-Af 25 L BUN/Creatinine Ratio 12.0 Glucose 167 H Calcium 7.6 L 05/11/19 08:04 WBC RBC Hgb 6.9 L Hct 20.8 L MCV MCH MCHC RDW Std Deviation RDW Coeff of Yin Plt Count MPV Immature Gran % (Auto) Neut % (Auto) Lymph % (Auto) [place] % (Auto) Eos % (Auto) Baso % (Auto) Absolute Neuts (auto) Absolute Lymphs (auto) Absolute Nucleated RBC Nucleated RBC % Differential Comment Sodium Potassium Chloride Carbon Dioxide Anion Gap BUN Creatinine Estim Creat Clear Calc Est GFR (MDRD) Af Amer Est GFR (MDRD) Non-Af BUN/Creatinine Ratio Glucose Calcium POC Glucose 05/11/19 05/10/19 05/10/19 06:32 21:30 17:13 POC Glucose 160 H 211 H 252 H 05/10/19 11:32 POC Glucose 254 H Medical Necessity - Tobacco Use Smoking Status: Former smoker Tobacco Use: Cigarettes Assessment/Plan All Active Problems A-fib (Acute) Hyperlipidemia (Acute) Depression (Acute) DM type 2 (diabetes mellitus, type 2) (Acute) Hypothyroidism (Acute) Glaucoma (Acute) Closed left hip fracture (Acute) left subtrochanteric fracture pod 2 s/p imnail left hip Discussed in detail with daughter morbidity mortality with a left hip fracture is especially is secondary to the fact that he is a diabetic and has dementia and risk increased risk for sundowning infection nonhealing etc. Risk benefits alternatives surgery discussed with family. Risks including but not limited to blood loss, blood clot, infection, neurovascular, failure procedure, loss of life and loss of limb. Daughter is aware and would like proceed with left hip intramedullary nailing possible open reduction and cerclage wiring. Medicine clear next ttwb left leg po xray- slight displacement of fracture compared to intraop fluoro but still in good alignment. will follow. anticoag per hospitalist dispo planning This note was generated with Dragon dictation software. It may contain incorrect words, spelling, and punctuation that were not noted in checking the note before signing.
[2019-05-11] MEDS: Ferrous Sulfate 325 MG Tablet PO ×2 (11:33→16:22)
[2019-05-11 11:36] LABS: Bedside Glucose 234 mg/dL (70-110)
[2019-05-11 14:07] LABS: Hematocrit 22.7 % (40-54); Hemoglobin 7.8 g/dL (13.0-16.5)
[2019-05-11 16:06] LABS: Bedside Glucose 199 mg/dL (70-110)
[2019-05-11] MEDS: 0.9% NaCl Peripheral Flush Adult/Peds IV ×3 (16:23→20:16)
[2019-05-11] MEDS: Rivaroxaban 10 MG Tablet PO (16:23)
[2019-05-11] MEDS: Senna/Docusate Sodium 1 Tablet 2 TABLET PO (16:24)
[2019-05-11] MEDS: Morphine 2 MG/ML Syringe IV (20:16)
[2019-05-11] MEDS: Latanoprost 0.005% 1 Bottle 1 DRP OPHTHALMIC (21:49)
[2019-05-11] MEDS: Atorvastatin Calcium 10 MG Tablet PO (21:49)
[2019-05-11 22:01] LABS: Bedside Glucose 233 mg/dL (70-110)
[2019-05-12] VITALS (8 sets, daily range): BP systolic 107–146; BP diastolic 56–71; PULSE 89–96; RESP 16–20; TEMP 36.7–37.6; O2SAT 91–100
[2019-05-12] MEDS: oxyCODONE 5 MG Tablet PO ×2 (01:49→14:31)
[2019-05-12] MEDS: Levothyroxine 88 MCG Tablet PO (05:12)
[2019-05-12] MEDS: Senna/Docusate Sodium 1 Tablet 2 TABLET PO ×2 (05:12→17:23)
[2019-05-12] MEDS: Acetaminophen 500 MG Tablet 1000 MG PO ×2 (05:12→14:31)
[2019-05-12] MEDS: Insulin Lispro 100 UNIT/ML INSULN.PEN SC ×3 (06:32→16:20)
[2019-05-12 06:41] LABS: Absolute Lymphocyte Count 1.37 X10^3/uL (0.83-4.51); Absolute Neutrophil Count 2.5 X10^3/uL (2.0-7.7); Hemoglobin 7.4 g/dL (13.0-16.5); Lymphocyte # 1.37 X10^3/ul (4.0); Lymphocyte % 31.2 % (19-41); Mean Corp Hgb Conc 33.6 g/dL (32-36); Mean Corpuscular Volume 95.2 fL (80-94); Monocyte# 0.47 X10^3/uL; Monocyte% 10.7 % (0-10); NRBC Flagged by Analyzer 0 % (0-5); Neutrophil # 2.53 X10^3/uL (2.7-7.7); Neutrophil % 57.6 % (47-70); POSITIVE MORPHOLOGY YES; Platelet Count 136 K/mm3 (150-450); RBC Distribution Width CV 13.5 % (11.6-14.6); RBC Distribution Width SD 46.9 fl (35.1-43.9); Red Blood Count 2.31 M/mm3 (4.6-6.2); White Blood Count 4.4 K/mm3 (4.4-11.0)
[2019-05-12 06:46] LABS: Bedside Glucose 162 mg/dL (70-110)
[2019-05-12 06:59] LABS: Anion Gap 10 (5-15); BUN 32 mg/dL (7-18); BUN/Creat Ratio 13.2 RATIO (10-20); Calcium,Total 8.1 mg/dL (8.5-10.1); Chloride 109 mmol/L (98-107); Creatinine, Serum 2.42 mg/dL (0.70-1.30); EST Glomerular Filtration Rate 27 mL/min (>60); Est Glom Filt Rate - Afr Amer 33 mL/min (>60); Glucose 156 mg/dL (74-106); Potassium 4.5 mmol/L (3.5-5.1); Sodium Level 142 mmol/L (136-145)
[2019-05-12 07:16] LABS: Differential Indicated SCAN CRITERIA MET
[2019-05-12 07:32] LABS: Differential Comment SCANNED
[2019-05-12] MEDS: Multivitamins,Therapeutic Tablet 1 TABLET PO (08:16)
[2019-05-12] MEDS: Amiodarone 200 MG Tablet PO (08:17)
--- NOTE | 2019-05-12 09:41 | PCM.TXEXTCAR ---
- Diet 05/10/19 05:08 Diet: Calorie Controlled Is pt able to select menu?: No Diet Comments: ADVANCE TO POST-OP DIET BY POD#1 How many daily calories?: 1800 calorie - Routine Orders/Code Status Routine Lab Work: CBC - within 3 days, BMP - within 3 days - Wound(s) Left Hip Wound Type: Surgical Incision Dressing Change: Daily dressing changes per orthopedic surgry instructions - Therapies Weight Bearing: Non weight bearing Extremity Affected:: Left Lower Physical Therapy: Eval and Treat Occupational Therapy: Eval and Treat - Allergies/Procedures Done in Hospital Allergies/Adverse Reactions: Allergies No Known Allergies Allergy (Verified 05/09/19 05:09) - Type of Care/Length of Stay Estimated LOS: Convalescent Care Less Than 30 days Type of Care Needed: Skilled Rehab Potential: Good Prognosis: Good - Additional Orders/Day of Discharge Day of Discharge: 05/12/19 - Follow Up Care Primary Care Physician: Hieu Gardner MD [Primary Care Provider] - Please follow up with your Primary Care Physician in: within 1-2 weeks Please Follow Up With: Kathy Merida DO When: within 2 weeks
--- NOTE | 2019-05-12 09:44 | DS.PCM_ITS ---
Discharge Date and Diagnosis - Problem List Patient Problems: Active and Suspected Problems A-fib (Acute) Hyperlipidemia (Acute) Depression (Acute) DM type 2 (diabetes mellitus, type 2) (Acute) Hypothyroidism (Acute) Glaucoma (Acute) Closed left hip fracture (Acute) Date of Admission: 05/09/19 Date of Discharge: 05/12/19 - Primary Discharge Diagnosis Active and Suspected Problems 1.Left hip fracture, s/p left cephalo-medullary nailing 2. Post-op anemia secondary to acute blood loss from surgery 3. Debility 4. DON opn CKD stage 3, prerenal secondary to dehydration, acute blood loss - Secondary Discharge Diagnosis Chronic Problems Hypertension (Chronic) Hypothyroidism Paroxysmal A. fib Type 2 DM Hospital Course and Treatment Imaging Results: Clinical Impression(s) from Imaging Studies Chest X-Ray 05/09/19 05:10 IMPRESSION: No acute cardiopulmonary disease. Electronically Signed: Martin Vallecillo MD at 6:26 EDT , Service support , Hip/Pelvis X-Ray 05/09/19 05:12 IMPRESSION: Intertrochanteric fracture left hip. Electronically Signed: Martin Vallecillo MD at 6:29 EDT , Service support , Brain CT 05/09/19 05:13 IMPRESSION: No acute intracranial abnormality. Old right basal ganglia lacunar infarction otherwise normal CT head for the patient's age. Electronically Signed: Martin Vallecillo MD at 6:32 EDT , Service support , Femur X-Ray 05/09/19 08:03 IMPRESSION: No significant change of intertrochanteric fracture. Electronically Signed: Tadeo Torres MD at 10:21 EDT Tel , Service support , Femur X-Ray 05/09/19 13:45 IMPRESSION: Fluoroscopic guided intraoperative fixation of left intertrochanteric fracture Electronically Signed: Jeb Rodriguez MD at 16:54 EDT , Service support , Hip X-Ray 05/09/19 15:55 IMPRESSION: Status post ORIF left intertrochanteric fracture Electronically Signed: Jeb Rodriguez MD at 16:19 EDT , Service support , Orthopedics surgery Operations: total hip replacement - Left cephalomedullary nailing Procedures: None Summary of Care Provided: The patient is a 84 year old M with multiple comorbidities, resident in a NH who comes in after a fall and diagnosed with acute left hip subtrochanteric fracture. Patient's management was as follows: 1.Acute left hip fracture, traumatic, s/p mechanical fall, s/p left cephalo- medullary nailing, orthopedic surgery consulted. Pain was controlled in the hospital. He will follow up with DR. Merida in the outpatient. On Xarelto for VTE ppx by orthopedics 2.Post-op anemia secondary to acute blood loss in surgery, s/p 2 units pRBCs transfusion, discharged on po iron, repeat labs in the NH 3.Paroxysmal A. fib, in NSR, stable vitals, on amiodarone 4.Type 2 DM, insulin dependent, managed on home Lantus 5 units with blood sugar checks and insulin sliding scale 5. Hypothyroidism, on levothyroxine 6. DON on CKD stage 3, pre-renal secondary to dehydration and acute blood loss, improved with hydration and blood transfusions. Off Lisinopril, repeat labs in NH within 3 days Patient Problems: Active and Suspected Problems A-fib (Acute) Hyperlipidemia (Acute) Depression (Acute) DM type 2 (diabetes mellitus, type 2) (Acute) Hypothyroidism (Acute) Glaucoma (Acute) Closed left hip fracture (Acute) Subjective: On the day of discharge, patient was seen and examined, denied any new complaints. His pain is controlled. Objective: Physical exam: General: Alert, Oriented x3, Cooperative, No apparent distress HEENT: Atraumatic, PERRLA, EOMI, Normocephalic Oral: Moist Mucosa Neck: Supple Lungs: Clear to auscultation, Normal air movement Cardiovascular: Regular rate, Regular Rhythm, Normal S1, Normal S2, No murmurs Abdomen: Bowel Sounds Present, Soft, Non Tender, Non-Distended, No Hepato- splenomegaly Extremities: No edema Skin: No rashes Musculoskeletal: No Tenderness to Palpation of Joints or Extremities Lymphatic: No Cervical, Supraclavicular, or Inguinal Adenopathy Neurological: Cranial nerves II-XII grossly intact, Neuro grossly intact Psych/Mental Status: Normal Affect, Appropriate - Physical Exam Vital Signs Temp Pulse Resp BP Pulse Ox 98.4 F 90 20 H 107/58 L 91 05/12/19 07:56 05/12/19 07:59 05/12/19 07:56 05/12/19 07:56 05/12/19 07:56 Oxygen Flow Rate (L/min) 2 Oxygen Delivery Method Room Air Weight: 81.6 kg Body Mass Index (BMI) 25.0 Finger Stick Blood Glucose 173 Intake and Output for Last 24 Hours 05/10/19 05/11/19 05/12/19 23:59 23:59 23:59 Intake Total 2710 / 2710 806 / 806 60 / 60 Output Total 355 / 355 175 / 175 Balance 2355 / 2355 631 / 631 60 / 60 Laboratory Tests Past 24 Hrs 05/10/19 05/11/19 05/12/19 08:10 14:00 05:50 WBC 4.4 RBC 2.31 L Hgb 7.8 L 7.4 L Hct 22.7 L 22.0 L MCV 95.2 H MCH 32.0 MCHC 33.6 RDW Std Deviation 46.9 H RDW Coeff of Yin 13.5 Plt Count 136 L MPV 9.0 Immature Gran % (Auto) 0.500 Neut % (Auto) 57.6 Lymph % (Auto) 31.2 [place] % (Auto) 10.7 H Eos % (Auto) 0.0 Baso % (Auto) 0.0 Absolute Neuts (auto) 2.5 Absolute Lymphs (auto) 1.37 Absolute Nucleated RBC 0.00 Nucleated RBC % 0 Differential Comment SCANNED Sodium Potassium Chloride Carbon Dioxide Anion Gap BUN Creatinine Estim Creat Clear Calc Est GFR (MDRD) Af Amer Est GFR (MDRD) Non-Af BUN/Creatinine Ratio Glucose Calcium Blood Type O NEGATIVE Antibody Screen NEGATIVE Crossmatch See Detail 05/12/19 05:50 WBC RBC Hgb Hct MCV MCH MCHC RDW Std Deviation RDW Coeff of Yin Plt Count MPV Immature Gran % (Auto) Neut % (Auto) Lymph % (Auto) [place] % (Auto) Eos % (Auto) Baso % (Auto) Absolute Neuts (auto) Absolute Lymphs (auto) Absolute Nucleated RBC Nucleated RBC % Differential Comment Sodium 142 Potassium 4.5 Chloride 109 H Carbon Dioxide 23.0 Anion Gap 10 BUN 32 H Creatinine 2.42 H Estim Creat Clear Calc 24.20 Est GFR (MDRD) Af Amer 33 L Est GFR (MDRD) Non-Af 27 L BUN/Creatinine Ratio 13.2 Glucose 156 H Calcium 8.1 L Blood Type Antibody Screen Crossmatch POC Glucose 05/12/19 05/11/19 05/11/19 06:30 21:47 16:00 POC Glucose 162 H 233 H 199 H 05/11/19 11:22 POC Glucose 234 H Discharge Diet: Low fat/ Low Cholesterol, 2000 mg Sodium Diet, Carb Control Diet Home Medications: Medications to take at Discharge Amiodarone HCl 200 mg PO DAILY 05/09/19 Atorvastatin Calcium 10 mg PO QHS 05/09/19 Cholecalciferol (VIT D3) [Vitamin D3] 1,000 unit PO DAILY 05/09/19 Insulin Glargine,Hum.rec.anlog [Lantus Solostar] 5 unit SQ QHS 05/09/19 Latanoprost 0.005% [Xalatan Opthalmic] 1 drp OPHTHALMIC (EYE) QHS 05/09/19 Levothyroxine Sodium [Synthroid] 88 mcg PO DAILY 05/09/19 Venlafaxine HCl [Effexor] 75 mg PO BID 05/09/19 Acetaminophen [Tylenol] 1,000 mg PO TID tab 05/12/19 Ferrous Sulfate 325 mg PO 1200,1700 tab 05/12/19 Multivitamins,Therapeutic [Multivitamin] 1 tab PO DAILYCM tab 05/12/19 Oxycodone [Oxyir] 5 mg PO Q6H PRN PRN 5 Days #20 tab 05/12/19 Polyethylene Glycol 3350 [Miralax] 17 gm PO DAILY PRN PRN packet 05/12/19 Rivaroxaban [Xarelto] 10 mg PO DAILY@1700 tab 07/27/19 Senna/Docusate Sodium [Senokot-S] 2 tab PO BID PRN PRN tab 05/12/19 Following Prescrptions Were Given to Patient: Oxycodone [Oxyir] 5 mg PO Q6H PRN PRN 5 Days #20 tab PRN Reason: Severe Pain (-07/26) Prescription Printed Primary Care Physician: Hieu Gardner MD [Primary Care Provider] - Please follow up with your Primary Care Physician in: within 1-2 weeks Please Follow Up With: Kathy Merida DO When: within 2 weeks Disposition: Senior Living facility Minutes spent on discharge:: 50 Patient Condition:: Stable Medical Necessity - Tobacco Use Smoking Status: Former smoker Tobacco Use: Cigarettes Meaningful Use Info Meaningful Use Diagnoses (Choose all that apply): None applicable Code Visit Inpatient E&M: 50560 Disch Hosp
[2019-05-12] MEDS: Ferrous Sulfate 325 MG Tablet PO ×2 (11:26→16:19)
[2019-05-12 12:00] LABS: Bedside Glucose 248 mg/dL (70-110)
[2019-05-12 15:52] LABS: Hematocrit 24.2 % (40-54); Hemoglobin 8.3 g/dL (13.0-16.5)
[2019-05-12] MEDS: Rivaroxaban 10 MG Tablet PO (16:19)
[2019-05-12 16:41] LABS: Bedside Glucose 309 mg/dL (70-110)
--- NOTE | 2019-05-12 17:39 | NURSING ---
Report called to Odette the receiving nurse at the [facility].
== END 2019-05-12 17:50 | disposition skilled nursing facility (03) | DRG 481 ==
LOC: ED 06:12 → MS3 06:33
PROVIDERS: Orthopaedic Surgery; Admitting Provider Family Medicine; Emergency Provider Emergency Medicine; Family Provider Family Medicine; PCP Family Medicine; Visit Provider Internal Medicine
PROC: 0QS706Z Reposition Left Upper Femur with Intramedullary Internal Fixation Device, Open Approach (ICD-10-PCS; principal; 2019-05-09 13:40)
DX: S72.142A Displaced intertrochanteric fracture of left femur, initial encounter for closed fracture (principal); D62 Acute posthemorrhagic anemia; N17.9 Acute kidney failure, unspecified; I48.0 Paroxysmal atrial fibrillation; E03.9 Hypothyroidism, unspecified; H40.9 Unspecified glaucoma; E11.22 Type 2 diabetes mellitus with diabetic chronic kidney disease; N18.3 Chronic kidney disease, stage 3 (moderate); Z66 Do not resuscitate; W19.XXXA Unspecified fall, initial encounter; I12.9 Hypertensive chronic kidney disease with stage 1 through stage 4 chronic kidney disease, or unspecified chronic kidney disease; R53.81 Other malaise; Y92.122 Bedroom in nursing home as the place of occurrence of the external cause; Z79.4 Long term (current) use of insulin; I25.2 Old myocardial infarction; Z87.891 Personal history of nicotine dependence
CPT/HCPCS: 36415; 70450; 71045; 73502; 73552; 76000; 80048; 82962; 84484; 85014; 85018; 85025; 86850; 86900; 86920; 86922; 93005; 97110; 97162; 97166; 97530; 97535; 99285; C1713; J7030; J7040; P9016; A4216; J2405

== ENCOUNTER 2019-05-19 23:02 | Emergency (ER) | payer MEDICARE, SELFPAY ==
[2019-05-09 11:57] VITALS: BMI 25.0
[2019-05-19 23:04] VITALS: BP 153/83; PULSE 86; RESP 15; TEMP 36.4; O2SAT 95; BMI 25.4
--- NOTE | 2019-05-19 23:19 | ED.VISSUMM ---
- ER Visit Summary Date of Service: 05/19/19 Chief Complaint: Left hip pain History of Present Illness: The patient is a 84 M who presents with left hip pain. He had a recent fall with a fracture and an intramedullary nail. He fell again today. He normally uses a walker but was not using it when he fell. He did not have any dizziness or weakness. He complains of mild pain in his left hip currently. He denies any other injuries he denies recent illness such as fevers nausea vomiting. Physical Examination: Afebrile vitals unremarkable No distress Heart regular rate and rhythm Lungs are clear Abdomen soft nontender nondistended The left hip incision is clean dry and intact any noted Painful limited range of motion of the left hip Neurovascularly intact distally with brisk capillary refill normal sensation and intact motor function of the left lower extremity flexes the ankle wiggles the toes Test Results: Hip x-ray shows no acute injury. Hardware is intact. Emergency Department Course and Treatment: Patient's pain is only mild. He has no evidence of acute injury on x-ray. He was given tramadol and a prescription for the same. He will be discharged back to the nursing facility. Treatment Plan: [] Disposition: Discharge Impression: Left hip pain Fall This note was generated with [employer] dictation software. It may contain incorrect words, spelling, and punctuation that were not noted in review of the chart prior to signing ED Disposition - Plan for ED Patient: Referrals: Hieu Gardner MD [Primary Care Provider] -
--- NOTE | 2019-05-19 23:45 | RAD_ITS ---
STUDY: X-RAY - PELVIS AND LEFT HIP REASON FOR EXAM: Male, 84 years old. Fall. Left hip pain TECHNIQUE: 3 views of the pelvis and hip. COMPARISON: None. FINDINGS: There is a non-specific bowel gas pattern. Normal visualized soft tissue structures. There is diffuse demineralization of the osseous structures. There is narrowing with cortical sclerosis and osteophyte formation of the sacroiliac joint consistent with degenerative osteoarthritic changes. Normal bilateral superior and inferior pubic rami. There are degenerative changes of the pubic symphysis with articular narrowing and sclerosis. Normal bilateral ischial tuberosities. Postsurgical changes status post open reduction internal fixation of left intertrochanteric fracture with fracture fragments in near-anatomic alignment and position. There is avulsion of the lesser trochanter with mildly increased separation of fracture fragments, previously measured 8 mm now measures 17 mm. RAD/HIP, UNI W/ Pelvis 2-3 Views IMPRESSION: No acute bone injury of the pelvis and hip. Electronically Signed: Gena Rojas, at 1:47 EDT Tel , Service support ,
--- NOTE | 2019-05-20 02:08 | ED.DEP ---
ED Disposition - Plan for ED Patient: Instructions: CONTUSION, Lower Extremity Referrals: Hieu Gardner MD [Primary Care Provider] -
[2019-05-20 02:30] VITALS: BP 162/95; PULSE 86; RESP 22; O2SAT 96
== END 2019-05-20 02:49 | disposition home or self-care (01) ==
PROVIDERS: Emergency Provider Emergency Medicine; Family Provider Family Medicine; PCP Family Medicine
DX: M25.552 Pain in left hip (principal); W19.XXXA Unspecified fall, initial encounter; I10 Essential (primary) hypertension; E11.9 Type 2 diabetes mellitus without complications; I48.91 Unspecified atrial fibrillation; F32.9 Major depressive disorder, single episode, unspecified; Z79.4 Long term (current) use of insulin; Z79.899 Other long term (current) drug therapy
CPT/HCPCS: 73502; 99283

== ENCOUNTER → 2019-05-31 13:14 | Outpatient (CLI) | payer MEDICARE, SELFPAY ==
[2019-05-19 23:04] VITALS: BMI 25.4
--- NOTE | 2019-05-31 13:30 | RAD_ITS ---
STUDY: X-RAY - LEFT FEMUR REASON FOR STUDY: Male, 84 years old. Follow-up hip fracture TECHNIQUE: 5 view(s) of the femur. COMPARISON: 05/09/2019 FINDINGS: There is been interval placement of a left-sided hip screw and an intertrochanteric femoral marcelina spanning the previously seen intertrochanteric fracture of the left proximal femur. The hardware is intact and alignment is satisfactory. There is no new fracture or dislocation. RAD/Femur Min 2 Views IMPRESSION: Satisfactory postoperative changes from placement of a left-sided hip screw and femoral intramedullary marcelina. Redemonstration of an intertrochanteric fracture of the left proximal femur. No new fracture. Electronically Signed: Mehrdad Boyd, at 16:42 EDT Tel , Service support ,
--- NOTE | 2019-05-31 14:03 | RAD_ITS ---
STUDY: X-RAY - PELVIS REASON FOR EXAM: Male, 84 years old. Pain TECHNIQUE: One view of the pelvis was obtained. COMPARISON: 05/19/2019 FINDINGS: Again noted is a left sided hip screw spanning an intertrochanteric fracture of the left proximal femur. The hardware is intact and alignment is satisfactory. The remainder the visualized osseous structures are intact. There are stable degenerative changes in the hip. There are no radiodense foreign bodies. RAD/Pelvis 1 or 2 Views IMPRESSION: Redemonstration of a left-sided hip screw spanning a previously seen intertrochanteric fracture of the left proximal femur. No acute fracture or dislocation. Stable degenerative changes in the hips. Electronically Signed: Mehrdad Boyd, at 16:36 EDT Tel , Service support ,
== END ==
PROVIDERS: Family Provider Family Medicine; PCP Family Medicine; Referring Provider Physician Assistant; Visit Provider Physician Assistant
DX: S72.002A Fracture of unspecified part of neck of left femur, initial encounter for closed fracture (principal); R10.2 Pelvic and perineal pain
CPT/HCPCS: 72170; 73552